=== PATIENT | male | born 1995 | race African-American/Black ===

== ENCOUNTER 2016-08-15 13:07 | Emergency (ER) | payer OTHER ==
[~2016-08-15] VITALS: Ht 165.1 cm; Wt 81.5 kg
[~2016-08-15 13:07] MED LIST: MULT-1203 PO
[2016-08-15] MEDS ORDERED: ALBUTEROL SULFATE 2.5 MG/0.5 ML NEB SOLUTION NEB ONE (13:45)
[2016-08-15] MEDS ORDERED: IPRATROPIUM BROMIDE 0.5 MG/2.5 ML NEB SOLUTION NEB ONE (13:45)
[2016-08-15] MEDS ORDERED: PredniSONE 20 MG TABLET PO ONE (14:15)
[2016-08-15] MEDS ORDERED: SODIUM CHLORIDE 0.9% 1,000 ML IV ONE (14:30)
[2016-08-15] MEDS ORDERED: KETOROLAC TROMETHAMINE 30 MG/ML VIAL IVP ONE (14:30)
[2016-08-15] MEDS ORDERED: HYDROCODONE/ACETAMINOPHEN 5-325 MG TABLET PO ONE (14:45)
[2016-08-15 14:52] LABS: INFLUENZA TYPE B NEGATIVE FOR TYPE B (NEGATIVE)
[2016-08-15 15:46] VITALS: BP 116/71
== END 2016-08-15 16:03 | disposition home or self-care (01) ==
LOC: EMS 13:09
DX: J45.901 Unspecified asthma with (acute) exacerbation (principal); J20.9 Acute bronchitis, unspecified
CPT/HCPCS: 87804; 94640; 99284; J7512; J7613

== ENCOUNTER 2016-10-18 09:27 | Emergency (ER) | payer OTHER ==
[~2016-10-18] VITALS: Ht 172.7 cm; Wt 81.0 kg
[2016-10-18] MEDS ORDERED: ONDANSETRON HCL 4 MG/2 ML VIAL IVP ONE ×2 (10:30→13:30)
[2016-10-18] MEDS ORDERED: SODIUM CHLORIDE 0.9% 1,000 ML IV ONE (10:30)
[2016-10-18 11:07] LABS: BASOPHILS # (AUTO) 0.02 K/uL (0.00-0.20); BASOPHILS % (AUTO) 0.3 % (0.0-2.0); EOSINOPHILS # (AUTO) 0.36 K/uL (0.00-0.70); EOSINOPHILS % (AUTO) 5.57 % (1.0-6.0); HEMATOCRIT 46.4 % (41-53); HEMOGLOBIN 15.2 g/dL (13.5-17.5); LYMPHOCYTES % (AUTO) 15.6 % (22.0-44.0); MEAN CORPUSCULAR HEMOGLOBIN 27.6 pg (26.0-34.0); MEAN CORPUSCULAR HGB CONC 32.8 G/dL (31.0-37.0); MEAN CORPUSCULAR VOLUME 84 fL (80-100); MONOCYTES % (AUTO) 14.9 % (2.0-9.0); NEUTROPHILS # (AUTO) 4.1 K/uL (1.8-7.7); NEUTROPHILS % (AUTO) 63.6 % (40.0-70.0); PLATELET COUNT (AUTO) 183 K/uL (150-450); RED BLOOD CELL COUNT(AUTO) 5.51 MIL/uL (4.50-5.90); WHITE BLOOD COUNT (AUTO) 6.5 K/uL (4.5-11.0)
[2016-10-18 11:13] LABS: ANION GAP 6 mmol/L (8-16); CALCIUM, TOTAL 8.8 mg/dL (8.8-10.5); CARBON DIOXIDE 29 mmol/L (22-29); CHLORIDE 103 mmol/L (98-107); CREATININE 1.19 mg/dL (0.60-1.30); GLOMERULAR FILTR. RATE CALC > 60 mL/min (>60); POTASSIUM 4.2 mmol/L (3.5-5.1); SODIUM SERUM 138 mmol/L (136-145); UREA NITROGEN, BLOOD 14 mg/dL (7-18)
[2016-10-18 11:20] LABS: ALANINE AMINOTRANSFERASE 26 U/L (12-78); ALBUMIN 3.8 g/dL (3.4-5.0); ASPARTATE AMINOTRANSFERASE 17 U/L (15-37); BILIRUBIN,TOTAL 0.7 mg/dL (0.1-1.0); TOTAL PROTEIN, SERUM 7.9 g/dL (6.4-8.2)
[2016-10-18] MEDS ORDERED: ALBUTEROL SULFATE 2.5 MG/0.5 ML NEB SOLUTION NEB ONE (11:35)
[2016-10-18] MEDS ORDERED: 0.9% SODIUM CHLORIDE 5 ML NEB SOLUTION NEB ONE (11:43)
[2016-10-18] MEDS ORDERED: FAMOTIDINE 10 MG/ML 2 ML VIAL IVP ONE (11:45)
[2016-10-18 14:25] VITALS: BP 112/66
== END 2016-10-18 14:35 | disposition home or self-care (01) ==
LOC: EMS 09:28
DX: K52.9 Noninfective gastroenteritis and colitis, unspecified (principal); J45.909 Unspecified asthma, uncomplicated
CPT/HCPCS: 36415; 76700; 80053; 83690; 85025; 94640; 96361; 96374; 96375; 96376; 99285; J2405; J3490; J7030; J7613

== ENCOUNTER 2017-01-10 06:51 | Emergency (ER) | payer OTHER ==
[~2017-01-10] VITALS: Ht 172.7 cm; Wt 72.7 kg
[2017-01-10 06:56] VITALS: BP 137/65
[2017-01-10] MEDS ORDERED: FLUT16H NASAL (06:58)
== END 2017-01-10 07:51 | disposition left against medical advice (07) ==
LOC: EMS 06:52
DX: R20.0 Anesthesia of skin (principal); S60.861A Insect bite (nonvenomous) of right wrist, initial encounter; Z53.21 Procedure and treatment not carried out due to patient leaving prior to being seen by health care provider

== ENCOUNTER 2017-05-06 08:55 | Emergency (ER) | payer OTHER ==
[~2017-05-06] VITALS: Ht 172.7 cm; Wt 77.3 kg
[~2017-05-06 08:55] MED LIST changes: +FLUT16H NASAL; -MULT-1203 PO
[2017-05-06] MEDS ORDERED: PRED20 PO (09:00)
[2017-05-06] MEDS ORDERED: IBUPROFEN 800 MG TABLET PO ONE (09:45)
[2017-05-06 10:37] VITALS: BP 107/70
== END 2017-05-06 10:44 | disposition home or self-care (01) ==
LOC: EMS 08:57
DX: S86.891A Other injury of other muscle(s) and tendon(s) at lower leg level, right leg, initial encounter (principal); S86.892A Other injury of other muscle(s) and tendon(s) at lower leg level, left leg, initial encounter; M21.42 Flat foot [pes planus] (acquired), left foot; M21.41 Flat foot [pes planus] (acquired), right foot; J45.909 Unspecified asthma, uncomplicated; F12.90 Cannabis use, unspecified, uncomplicated; X58.XXXA Exposure to other specified factors, initial encounter; Y93.89 Activity, other specified; Y92.89 Other specified places as the place of occurrence of the external cause; Y99.8 Other external cause status
CPT/HCPCS: 99284

== ENCOUNTER 2017-07-15 09:15 | Emergency (ER) | payer OTHER ==
[~2017-07-15] VITALS: Ht 172.7 cm; Wt 77.3 kg
[~2017-07-15 09:15] MED LIST changes: -FLUT16H NASAL; +PRED20 PO
[2017-07-15 10:14] VITALS: BP 115/59
== END 2017-07-15 10:50 | disposition home or self-care (01) ==
LOC: EMS 09:16
DX: J06.9 Acute upper respiratory infection, unspecified (principal); J45.909 Unspecified asthma, uncomplicated; F12.10 Cannabis abuse, uncomplicated
CPT/HCPCS: 99283

== ENCOUNTER 2017-08-11 22:46 | Emergency (ER) | payer SELFPAY ==
[~2017-08-11] VITALS: Ht 172.7 cm; Wt 77.3 kg
[2017-08-11] MEDS ORDERED: LORA10TA7 PO (22:57)
[2017-08-11] MEDS ORDERED: [UNRECOGNIZED DRUG - REMARK] NASAL (22:57)
[2017-08-11] MEDS ORDERED: AZITHROMYCIN 250 MG TABLET PO ONE (23:45)
[2017-08-11] MEDS ORDERED: CefTRIAXone SODIUM 1 GM/VIAL IM ONE (23:45)
[2017-08-11 23:53] LABS: APPEARANCE,URINE CLOUDY (CLEAR); BILIRUBIN,URINE NEGATIVE (NEGATIVE); GLUCOSE, URINE (UA) NEGATIVE (NEGATIVE); KETONES,URINE NEGATIVE (NEGATIVE); LEUKOCYTE ESTERASE ,URINE LARGE (NEGATIVE); NITRATE,URINE NEGATIVE (NEGATIVE); OCCULT BLOOD,URINE SMALL (NEGATIVE); PH,URINE 5.5 (5.0-8.0); PROTEIN,URINE TRACE (NEGATIVE); UROBILINOGEN,URINE 0.2 mg/dL (<=1.0)
[2017-08-12 00:13] LABS: BACTERIA,URINE Few /HPF (None Seen); WBC,URINE 51-100 /HPF (0-5)
[2017-08-12 00:32] VITALS: BP 131/80
== END 2017-08-12 00:57 | disposition home or self-care (01) ==
LOC: EMS 22:48
DX: N34.2 Other urethritis (principal); J45.909 Unspecified asthma, uncomplicated; F12.10 Cannabis abuse, uncomplicated
CPT/HCPCS: 81001; 87086; 87491; 87591; 96372; 99284; J0696

== ENCOUNTER 2017-12-07 15:29 | Emergency (ER) | payer OTHER ==
[~2017-12-07] VITALS: Ht 175.3 cm; Wt 78.2 kg
[~2017-12-07 15:29] MED LIST changes: +LORA10TA7 PO; -PRED20 PO; +[UNRECOGNIZED DRUG - REMARK] NASAL
[2017-12-07 15:34] VITALS: BP 113/58
[2017-12-07] MEDS ORDERED: ALBU8HFA IH (15:39)
== END 2017-12-07 17:41 | disposition home or self-care (01) ==
LOC: EMS 15:30
DX: M25.511 Pain in right shoulder (principal); J45.909 Unspecified asthma, uncomplicated; F12.90 Cannabis use, unspecified, uncomplicated
CPT/HCPCS: 29105; 99284

== ENCOUNTER 2019-05-26 17:25 | Emergency (ER) | payer OTHER ==
[~2019-05-26] VITALS: Ht 172.7 cm; Wt 81.8 kg
[~2019-05-26 17:25] MED LIST changes: +ALBU8HFA IH
[2019-05-26] MEDS ORDERED: ONDANSETRON HCL 4 MG TABLET PO ONE (19:15)
[2019-05-26 19:39] LABS: BASOPHILS % (AUTO) 0.2 % (0.0-2.0); EOSINOPHILS % (AUTO) 3.2 % (1.0-6.0); LYMPHOCYTES # (AUTO) 0.8 K/uL (1.0-4.8); LYMPHOCYTES % (AUTO) 7.1 % (22.0-44.0); MEAN CORPUSCULAR VOLUME 85 fL (80-100); MONOCYTES # (AUTO) 0.8 K/uL (0.1-1.0); MONOCYTES % (AUTO) 7.7 % (2.0-9.0); NEUTROPHILS # (AUTO) 8.7 K/uL (1.8-7.7); NEUTROPHILS % (AUTO) 81.8 % (40.0-70.0); RED CELL DISTRIBUTION WIDTH 13.6 % (11.5-14.5)
[2019-05-26 19:53] LABS: APPEARANCE,URINE CLEAR (CLEAR); BILIRUBIN,URINE NEGATIVE (NEGATIVE); GLUCOSE, URINE (UA) NEGATIVE (NEGATIVE); KETONES,URINE TRACE mg/dL (NEGATIVE); LEUKOCYTE ESTERASE ,URINE NEGATIVE (NEGATIVE); NITRATE,URINE NEGATIVE (NEGATIVE); OCCULT BLOOD,URINE NEGATIVE (NEGATIVE); PH,URINE 6.5 (5.0-8.0); PROTEIN,URINE NEGATIVE (NEGATIVE); UROBILINOGEN,URINE 0.2 mg/dL (<=1.0)
[2019-05-26 20:00] LABS: ANION GAP 10 mmol/L (8-16); CALCIUM, TOTAL 8.8 mg/dL (8.8-10.5); CARBON DIOXIDE 24 mmol/L (22-29); CHLORIDE 103 mmol/L (98-107); CREATININE 1.11 mg/dL (0.60-1.30); GLOMERULAR FILTR. RATE CALC > 60 mL/min (>60); GLUCOSE,RANDOM 80 mg/dL (70-110); POTASSIUM 3.8 mmol/L (3.5-5.1); SODIUM SERUM 137 mmol/L (136-145); UREA NITROGEN, BLOOD 14 mg/dL (7-18)
[2019-05-26 20:05] LABS: ALANINE AMINOTRANSFERASE 34 U/L (12-78); ALBUMIN 4.1 g/dL (3.4-5.0); ALKALINE PHOSPHATASE 44 U/L (46-116); ASPARTATE AMINOTRANSFERASE 16 U/L (15-37); BILIRUBIN,TOTAL 0.6 mg/dL (0.1-1.0); TOTAL PROTEIN, SERUM 7.8 g/dL (6.4-8.2)
[2019-05-26 20:33] LABS: PLATELET COUNT (AUTO) 152 K/uL (150-450)
[2019-05-26] MEDS ORDERED: ONDANSETRON HCL 4 MG/2 ML VIAL IVP ONE (22:00)
[2019-05-26] MEDS ORDERED: SODIUM CHLORIDE 0.9% 1,000 ML IV ONE (22:00)
[2019-05-26 23:10] VITALS: BP 118/71
== END 2019-05-26 23:15 | disposition home or self-care (01) ==
LOC: EMS 17:26
DX: S62.655A Nondisplaced fracture of middle phalanx of left ring finger, initial encounter for closed fracture (principal); R11.2 Nausea with vomiting, unspecified; J45.909 Unspecified asthma, uncomplicated; F12.90 Cannabis use, unspecified, uncomplicated; Z79.899 Other long term (current) drug therapy; W17.89XA Other fall from one level to another, initial encounter; Y93.39 Activity, other involving climbing, rappelling and jumping off; Y92.89 Other specified places as the place of occurrence of the external cause; Y99.8 Other external cause status
CPT/HCPCS: 36415; 73140; 80053; 81003; 83690; 85025; 96361; 96374; 99284; J2405; J7030; Q0162

== ENCOUNTER 2019-07-01 18:57 | Emergency (ER) | payer OTHER ==
[~2019-07-01] VITALS: Ht 172.7 cm; Wt 180.0 kg
[2019-07-01 19:29] LABS: APPEARANCE,URINE CLEAR (CLEAR); BILIRUBIN,URINE NEGATIVE (NEGATIVE); GLUCOSE, URINE (UA) NEGATIVE (NEGATIVE); KETONES,URINE NEGATIVE (NEGATIVE); LEUKOCYTE ESTERASE ,URINE NEGATIVE (NEGATIVE); NITRATE,URINE NEGATIVE (NEGATIVE); OCCULT BLOOD,URINE NEGATIVE (NEGATIVE); PH,URINE 6.5 (5.0-8.0); PROTEIN,URINE NEGATIVE (NEGATIVE)
[2019-07-01] MEDS ORDERED: CefTRIAXone SODIUM 1 GM/VIAL IM ONE (20:30)
[2019-07-01] MEDS ORDERED: LIDOCAINE/PF 1% 2 ML VIAL IM ONE (20:30)
[2019-07-01] MEDS ORDERED: AZITHROMYCIN 250 MG TABLET PO ONE (20:30)
[2019-07-01 21:03] VITALS: BP 115/75
== END 2019-07-01 21:05 | disposition home or self-care (01) ==
LOC: EMS 18:59
DX: N34.2 Other urethritis (principal); J45.909 Unspecified asthma, uncomplicated; F12.90 Cannabis use, unspecified, uncomplicated
CPT/HCPCS: 81003; 87491; 87591; 96372; 99283; J0696; J3490

== ENCOUNTER 2019-07-23 12:47 | Emergency (ER) | payer OTHER ==
[~2019-07-23] VITALS: Ht 172.7 cm; Wt 81.8 kg
[~2019-07-23 12:47] MED LIST changes: -[UNRECOGNIZED DRUG - REMARK] NASAL
[2019-07-23 14:12] VITALS: BP 122/77
[2019-07-23] MEDS ORDERED: IBUPROFEN 600 MG TABLET PO ONE (14:30)
== END 2019-07-23 14:48 | disposition home or self-care (01) ==
LOC: EMS 12:47
DX: M72.2 Plantar fascial fibromatosis (principal); M79.671 Pain in right foot; J45.909 Unspecified asthma, uncomplicated; F12.90 Cannabis use, unspecified, uncomplicated

== ENCOUNTER 2020-09-26 00:07 | Emergency (ER) | payer OTHER ==
[~2020-09-26] VITALS: Ht 172.7 cm; Wt 86.4 kg
[2020-09-26 01:45] VITALS: BP 128/62
== END 2020-09-26 01:57 | disposition home or self-care (01) ==
LOC: EMS 00:09
DX: T81.31XA Disruption of external operation (surgical) wound, not elsewhere classified, initial encounter (principal); Y83.8 Other surgical procedures as the cause of abnormal reaction of the patient, or of later complication, without mention of misadventure at the time of the procedure; Y82.8 Other medical devices associated with adverse incidents
CPT/HCPCS: 99283; Z7502